=== PATIENT | female | born 1940 | race Hispanic/Latino ===

== ENCOUNTER 2017-08-03 12:24 | Outpatient (CLI) | payer MEDICARE ==
--- NOTE | 2017-08-04 08:47 | XRay Report ---
FINAL REPORT EXAM: XR SHOULDER 2+V LT HISTORY: UNSPECIFIED DISPLACED FRACTURE OF SURGICAL NECK OF LEFT HUMERUS COMPARISONS: None. FINDINGS: Five views left shoulder A comminuted and angulated fracture extends through the surgical neck of the left humerus. A left humeral intramedullary nail with proximal and distal screws is present. The left glenohumeral joint appears intact. Acromioclavicular and coracoclavicular intervals are within normal limits. No acute left lung finding. IMPRESSION: Angulated and mildly comminuted left humeral surgical neck fracture is present, which is spanned by an intramedullary nail. Hardware appears intact.
== END 2017-08-03 12:25 | disposition home or self-care (01) ==
LOC: XRAY 12:24
PROVIDERS: ATTEND Orthopaedic Surgery
DX: S42.212D Unspecified displaced fracture of surgical neck of left humerus, subsequent encounter for fracture with routine healing (principal); X58.XXXD Exposure to other specified factors, subsequent encounter

== ENCOUNTER 2017-09-06 13:57 | Outpatient (CLI) | payer MEDICARE ==
--- NOTE | 2017-09-06 15:51 | XRay Report ---
FINAL REPORT EXAM: XR HUMERUS 2+V LT HISTORY: FRACTURE TECHNIQUE: Two views of the humerus Comparison: 08/03/2017 shoulder films FINDINGS: There is an intramedullary nail with proximal and distal screws unchanged from previous placed for surgical neck left humeral fracture. The alignment is not significantly changed with mild angulation as previously. There has been mild callus formation. Bones are osteopenic. There is no hardware failure. IMPRESSION: No significant interval change in the hardware in the left humerus with angulated humeral surgical neck fracture with mild callus formation. Disuse osteopenia.
== END 2017-09-06 13:58 | disposition home or self-care (01) ==
LOC: XRAY 13:57
PROVIDERS: ATTEND Orthopaedic Surgery
DX: S42.212D Unspecified displaced fracture of surgical neck of left humerus, subsequent encounter for fracture with routine healing (principal); X58.XXXD Exposure to other specified factors, subsequent encounter; M85.841 Other specified disorders of bone density and structure, right hand